=== PATIENT | male | born 1980 | race Caucasian/White ===

== ENCOUNTER 2023-01-04 08:20 | Outpatient (NON) | payer OTHER, SELFPAY | END 2023-01-04 08:21 | disposition home or self-care (01) | LOC: ANHLAB 01-05 08:22 | PROVIDERS: PCP Family Medicine; Visit Provider Internal Medicine Gastroenterology | DX: D12.5 Benign neoplasm of sigmoid colon (principal); Z80.0 Family history of malignant neoplasm of digestive organs | CPT/HCPCS: 88305 ==

== ENCOUNTER 2023-01-04 11:04 | Day surgery (SDC) | payer OTHER, SELFPAY ==
[2022-11-27 09:02] VITALS: BMI 32.5
[2022-12-22 13:25] VITALS: BMI 32.5
[2023-01-04 11:20] VITALS: BP 134/91; PULSE 85; RESP 20; TEMP 36.7; O2SAT 100
[2023-01-04] MEDS: LACTATED RINGERS 1,000 ML 150 ML IV CONT (11:28)
--- NOTE | 2023-01-04 11:32 | P.PNAN_ITS ---
Anes - Initial Pre Proc Eval Procedure: Operation Date: 01/04/23 12:30 Proposed Procedures p Diagnostic Colonoscopy - Alton Hong MD Date/Time: 01/04/23 11:32 Surgeon: Alton Hong MD Pre Op Diagnosis: Diarrhea and Family History of Colon Cancer Patient Data Age: 42 Gender: M Height: 1.73 m Weight: 92.7 kg Last Vital Signs Temp 36.7 C 01/04/23 11:20 Pulse 85 01/04/23 11:20 Resp 20 01/04/23 11:20 BP 134/91 H 01/04/23 11:20 Pulse Ox 100 01/04/23 11:20 O2 Del Method Room Air 01/04/23 11:20 Allergies Allergy/AdvReac Type Severity Reaction Status Date / Time No Known Allergies Allergy Mild Verified 12/22/22 13:23 Home Medications Medication Instructions Recorded Confirmed Type No Home Medications 11/03/22 01/04/23 History Patient hx anesthesia problems: none Family hx anesthesia problems: none Results Review: All pre-operative results and documents have been reviewed as part of the pre- operative evaluation. [facility] Past Medical History Medical History Anxiety BMI 32.0-32.9,adult COVID-19 Gallbladder mass Surgical History Surgical History H/O inguinal hernia repair History of cholecystectomy Family History Family History Grandparent Family history of malignant neoplasm Family history of coronary artery disease Father COPD (chronic obstructive pulmonary disease) Tobacco abuse Mother Tobacco abuse Sibling No problems noted. 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 Informed Consent: The patient's anesthetic plan and its attendant risks and benefits were discussed with the patient/family/POA. Questions were solicited and answers provided to the satisfaction of the patient/family/POA.
--- NOTE | 2023-01-04 11:39 | PM.HPGS ---
History of Present Illness History of Present Illness Consent: Risks, benefits, and alternatives have been discussed and questions answered. Patient agrees to proceed with procedure. Chief complaint: Diarrhea and Family History of Colon Cancer Narrative: Elvin Mcguire is a 42 year old male here for first screening colonoscopy Review of Systems Constitutional: Constitutional: Denies headache(s) and Denies weakness Eyes: Eyes: Denies blurry vision ENT: Reports Normal hearing present, Denies headache(s) and Denies neck pain Cardiovascular: Cardiovascular: Denies chest pain and Denies dyspnea Respiratory: Respiratory: Denies dyspnea Gastrointestinal: Gastrointestinal: Reports no additional gastrointestinal complaints Genitourinary: Genitourinary: Denies dysuria Musculoskeletal: Musculoskeletal: Denies neck pain Integumentary/Breasts: Skin/Breast: Denies dry skin Neurologic: Reports Normal hearing present, Denies headache(s) and Denies weakness Psychiatric: Psychiatric: Denies anxiety Endocrine: Endocrine: Denies change in body appearance Hematologic/Lymphatic: Hematologic/Lymphatic: Denies easy bleeding Allergic/Immunologic: Allergic/Immunologic: Denies urticaria PMFSH Past Medical History Medical History (Updated 01/04/23 @ 11:40 by Alton Hong MD) Anxiety BMI 32.0-32.9,adult Colon cancer screening COVID-19 Gallbladder mass Surgical History Surgical History H/O inguinal hernia repair History of cholecystectomy Family History Family History Grandparent Family history of malignant neoplasm Family history of coronary artery disease Father COPD (chronic obstructive pulmonary disease) Tobacco abuse Mother Tobacco abuse Sibling No problems noted. 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 Gender identity (if verbalized by the patient): Male Spiritual care concerns: No Meds Home Medications and Allergies Home Medications Medication Instructions Recorded Confirmed Type No Home Medications 11/03/22 01/04/23 History Allergies Allergy/AdvReac Type Severity Reaction Status Date / Time No Known Allergies Allergy Mild Verified 12/22/22 13:23 Vital Signs Vital Signs - 24 hr 01/04/23 11:20 Temperature 98.1 F Pulse Rate 85 Respiratory Rate 20 Blood Pressure 134/91 H Pulse Oximetry 100 Oxygen Delivery Room Air Exam Const: General: comfortable and no acute distress HENMT: Face/Nose/Sinus: Normal nares present Eyes: General: appearance normal, both eyes and all related structures Neck: Neck: no JVD Resp: Auscultation: clear to auscultation bilaterally Cardio: Rate: regular rate Rhythm: regular rhythm GI: Inspection: non-distended GI Palp: Yes Soft to palpation Skin: General skin exam: normal color Neuro: General: gait normal Speech: normal speech Extrem: General: normal to inspection Psych: Mental Status: mental status grossly normal Assessment and Plan Assessment and plan (1) Colon cancer screening: Code(s): Z12.11 - Encounter for screening for malignant neoplasm of colon Status: Acute Assessment and
[2023-01-04 12:02] VITALS: BP 114/80; PULSE 76; RESP 14; O2SAT 99
[2023-01-04 12:12] VITALS: BP 117/81; PULSE 74; RESP 18; O2SAT 100
[2023-01-04 12:22] VITALS: BP 116/84; PULSE 65; RESP 18; O2SAT 100
--- NOTE | 2023-01-04 12:29 | WPDANESPN ---
Anes - Prog Note Post-Op Date/Time: 01/04/23 12:29 Cardiovascular status: normal Respiratory status: normal Airway patency: baseline Mental status: baseline Post-Op hydration status: normal Vital Signs: Last Vital Signs Temp 36.7 C 01/04/23 11:20 Pulse 74 01/04/23 12:12 Resp 18 01/04/23 12:12 BP 117/81 01/04/23 12:12 Pulse Ox 100 01/04/23 12:12 O2 Del Method Room Air 01/04/23 12:12 Pain Score (VAS): 0/10 I/O: Intake & Output 01/03/23 01/04/23 01/04/23 23:59 07:59 15:59 Intake Total 400 Balance 400 Patient Feedback: Patient satisfied with anesthetic care.
== END 2023-01-04 12:45 | disposition home or self-care (01) ==
PROVIDERS: PCP Family Medicine; Visit Provider Internal Medicine Gastroenterology
PROC: 0DJD8ZZ Inspection of Lower Intestinal Tract, Via Natural or Artificial Opening Endoscopic (ICD-10-PCS; CPT 45378; principal; 2023-01-04 12:30)
DX: Z12.11 Encounter for screening for malignant neoplasm of colon (principal)
CPT/HCPCS: 45385